=== PATIENT | male | born 1985 | race Caucasian/White ===

== ENCOUNTER 2019-08-04 18:16 | Emergency (ER) | payer BC ==
--- NOTE | 2019-08-04 19:36 | UC ---
Abdominal Pain Male HPI - HPI Summary HPI Summary: Patient is a 34-year-old gentleman who states he was treated for acute bronchitis with a Z-Wilfred and finished on Saturday. Patient states he's been feeling better until yesterday. Patient states midday he noted some discomfort in his abdomen quadrant. Patient states since this time pain has increased and seems to be more localized in the right lower quadrant. Patient denies any nausea vomiting. Patient ate lunch but did not eat dinner because he was "dizzy " patient denies any fevers or chills. No back pain. No hematuria. Patient had diarrhea Saturday but none since. Patient without any rashes. Patient with a headache congestion. Patient states his breathing is completely resolved since his treatment for bronchitis. Patient does have twin infants at home and one of the boys has influenza. Patient's primary is in family medicine and he has not seen this person in quite some time. He is on no prescribed medications. Patient took Motrin this morning for pain but nothing since. Patient is not immunocompromised. - History of Current Complaint Chief Complaint: UCAbdominalPain Stated Complaint: ABDOMINAL PAIN Hx Obtained From: Patient Severity Initially: Mild Severity Currently: Mild Pain Intensity: 2 Pain Scale Used: 0-10 Numeric - Allergies/Home Medications Allergies/Adverse Reactions: Allergies Allergy/AdvReac Type Severity Reaction Status Date / Time No Known Allergies Allergy Verified 08/04/19 18:30 Home Medications: Home Medications NK [No Home Medications Reported] 08/04/19 [History Confirmed 08/04/19] PMH/Surg Hx/FS Hx/Imm Hx Previously Healthy: Yes - Surgical History Surgical History: None - Family History Known Family History: Positive: Non-Contributory - Social History Occupation: Employed Full-time Lives: With Family Alcohol Use: Occasionally Substance Use Type: None Smoking Status (MU): Never Smoked Tobacco Review of Systems All Other Systems Reviewed And Are Negative: Yes Constitutional: Positive: Negative Skin: Positive: Negative Eyes: Positive: Negative ENT: Positive: Negative Respiratory: Positive: Negative Cardiovascular: Positive: Negative Gastrointestinal: Positive: Abdominal Pain Genitourinary: Positive: Negative Motor: Positive: Negative Neurovascular: Positive: Negative Musculoskeletal: Positive: Negative Neurological: Positive: Negative Psychological: Positive: Negative Is Patient Immunocompromised?: No Physical Exam - Summary Physical Exam Summary: Vital Signs Reviewed: Yes A+Ox3, no distress Eyes: Conjunctiva Clear, DAYNA. EOM intact and full ENT: Hearing grossly normal TM x 2 clear, mmoist, uvula midline, no exudate, no erythema Neck: Positive: Supple Respiratory: Positive: No respiratory distress, No accessory muscle use + CTA throughout no w/r Cardiovascular: RRR nl s1, s2 no m/r CBT <2 sec abd soft + BS nd, no guarding, no distended. + mild TTP right mid, lower abd Musculoskeletal Exam: MAHER x 4 without difficulty Strength Intact, ROM Intact, ambulatory without difficulty Neurological: Positive: Alert, + sensation throughout Psychological: Positive: Normal Response To examiner Skin: Positive: no rash, no ecchymosis Triage Information Reviewed: Yes Vital Signs: Initial Vital Signs Temp 98.8 F 08/04/19 18:27 Pulse 90 08/04/19 18:27 Resp 18 08/04/19 18:27 BP 139/94 08/04/19 18:27 Pulse Ox 99 08/04/19 18:27 Diagnostics - Radiology No standard instances Radiology Interpretation Completed By: Radiologist - Patient Name: ALEX TEE Medical Record#: [id number] Ordering Physician: Melania Lopez MD Acct.#: [id number] : 1985 Age: 34 Sex: M Location: [facility] Exam Date: 08/04/191949 ADM Status: REG ER Order Information: CT ABD/PEL W/ O Accession Number: [id number] CPT: 22748 PROCEDURE INFORMATION: Exam: CT Abdomen And Pelvis Without Contrast Exam date and time: 08/04/2019 7:59 PM Age: 34 years old Clinical indication: Abdominal pain; Additional info: Rlq pain, flank pain TECHNIQUE: Imaging protocol: Computed tomography of the abdomen and pelvis without contrast. Radiation optimization: All CT scans at this facility use at least one of these dose optimization techniques: automated exposure control ; mA and/or kV adjustment per patient size (includes targeted exams where dose is matched to clinical indication); or iterative reconstruction. COMPARISON: No relevant prior studies available. FINDINGS: Liver: Normal. No mass. Gallbladder and bile ducts: Normal. No calcified stones. No ductal dilation. Pancreas: Normal. No ductal dilation. Spleen: There is mild splenomegaly. Adrenals: Normal. No mass. Kidneys and ureters: Normal. No hydronephrosis. Stomach and bowel: Unremarkable. No obstruction. No mucosal thickening. Appendix: The appendix is mildly dilated measuring up to 9 mm diameter and isodense with no obvious periappendiceal inflammatory change. These findings are not specific for acute appendicitis but cannot exclude mild or early changes of acute appendicitis without signs of perforation. Intraperitoneal space: Unremarkable. No free air. No significant fluid collection. Vasculature : Unremarkable. No abdominal aortic aneurysm. Lymph nodes: Unremarkable. No enlarged lymph nodes. Bladder: Unremarkable as visualized. Reproductive: Unremarkable as visualized. Bones/joints: Unremarkable. No acute fracture. Soft tissues: Unremarkable. IMPRESSION: 1. The appendix is mildly dilated measuring up to 9 mm diameter and isodense with no obvious periappendiceal inflammatory change. These findings are not specific for acute appendicitis but cannot exclude mild or early changes of acute appendicitis without signs of perforation. 2. No visible renal, ureteral or bladder calculi. Dictated and Authenticated by: Aric Michael MD 08/04/2019 9:00 PM Eastern Time ([place] and [place]) To contact [facility] with a general question: [facility] - [phone] This report is only to be considered final once signed by the Provider(s) as displayed in the "<Electronically Signed by >" field (s). Absence of a signature indicates the report is in a draft status and still needs to be finalized. In the event this document was created by someone other than the signing Provider, the individual initiating the document will be listed in the "Entered by:" or "Dictated by:" ware. 1 of 2 Re-Evaluation - Re-Evaluation First Eval Comment: awaiting CT results. Pt without any needs Second Eval Comment: reviewed CT with pt . Pt continues with stable vital signs and non- toxic. Pt does have infant twins at home - one with influenza. Noted several patients in the [facility] in the ED. I called and hand a lengthy conversation with Dr. Bravo. Expressed my suspicion for early appendicitis and equivocal CT. After discussion - will discharge pt to home with very strict return precautions. Pt will go to ED in the morning 630-730am - have labs in ED. If provider suspicious for appy - will call surgeon sourcing consultant when results back. Pt states understand and complete agreement with plan. Verbalized back plan and return precautions. REpeat VS stable. I spoke with Liza primer charger in ED and she will pass to AM primer charger as well Abd Pain Male Course/Dx - Course Course Of Treatment: Patient presents to urgent care for evaluation of abdominal pain and progressive for the last 24 hours. Patient states yesterday, diffusely discomfort. Patient states today it's more towards the right lower quadrant. Patient denies any fevers. Patient hasn't okay appetite. No diaphoresis. No back pain. No dysuria or hematuria. Patient states he did have slight discomfort in his right testicle briefly earlier. No hematuria. On exam vital signs are stable. Patient very well-appearing not toxic. Patient does have right mid to lower abdominal pain. Patient urinalysis was done does not show signs of infection or hematuria. Discussed with patient treatment options. We' ll do CT noncontrast to look for renal colic versus appendicitis and discuss after. Patient aware and noncontrast study is suboptimal but oftentimes diagnostic for an inflamed appendicitis and inflammatory stranding with BMI > 30. Patient comfortable and agreement. Patient declined any analgesia at this time. - Differential Dx/Clinical Impression Provider Diagnosis: Acute abdominal pain Discharge ED - Sign-Out/Discharge Documenting (check all that apply): Patient Departure All imaging exams completed and their final reports reviewed: Yes - Discharge Plan Condition: Stable Disposition: HOME Patient Education Materials: Acute Abdominal Pain (ED) Referrals: Aric Bravo MD [Medical Doctor] - No Primary Care Phys,NOPCP [Primary Care Provider] - Additional Instructions: As discussed with your this evening, the doctor that evaluated you today is concerned your symptoms may represent an early appendicitis. [facility] with the plan that if your symptoms change in any way - increased pain, vomiting, fever, or ANY other concerns you go immediately to the emergency department. The provider who cared for you mitch spoke with the surgeon mitch. If your symptoms remain the same as current - you have been instructed to go to the emergency department in the morning (630-730am). If the ED provider caring for you is concerned for an appendicitis, it is recommended you have blood work drawn and the surgeon be called when these results are back. If you have any change to your symptoms or any other concern - please call 911 or go directly to the emergency department - Billing Disposition and Condition Condition: STABLE Disposition: Home
[2019-08-04 21:17] VITALS: BP 144/91
== END 2019-08-04 21:50 | disposition home or self-care (01) ==
LOC: UCEAST 18:16
DX: R10.9 Unspecified abdominal pain (principal); K38.9 Disease of appendix, unspecified
CPT/HCPCS: 74176; 81003; 99211; G0463

== ENCOUNTER 2019-08-05 03:30 | Day surgery (SDC) | payer BC ==
[2019-08-05] MEDS ORDERED: Ondansetron INJ* 2 MG/ML VIAL IV ONE (03:59)
[2019-08-05] MEDS ORDERED: NS 0.9% 1000 ML** 1,000 ML IV ONE (03:59)
[2019-08-05] MEDS ORDERED: fentaNYL* 50 MCG/ML 2 ML VIAL (100 MCG VIAL) IV SLOW PU ONE ×2 (04:00→04:01)
--- NOTE | 2019-08-05 04:19 | ED ---
Abdominal Pain/Male - HPI Summary HPI Summary: 34 year old male presents to the ED with a chief complaint of RLQ pain starting 2 days ago, gradually increasing in severity. Yesterday, urgent care CT revealed that appendix is enlarged. They recommended visiting [facility] for blood work and further workup. Patient denies fever but reports vomiting, chills, and diaphoresis. - History of Current Complaint Chief Complaint: EDAbdPain Stated Complaint: ABD PAIN PER PT Time Seen by Provider: 08/05/19 03:35 Hx Obtained From: Patient Onset/Duration: Gradual Onset, Lasting Days, Still Present Timing: Constant, Lasting Hours Severity Initially: Mild Severity Currently: Moderate Pain Intensity: 3 Pain Scale Used: 0-10 Numeric Location: Discrete At: RLQ Radiates: No Character: Sharp Associated Signs And Symptoms: Positive: Diaphoresis, Vomiting. Negative: Fever - Allergies/Home Medications Allergies/Adverse Reactions: Allergies Allergy/AdvReac Type Severity Reaction Status Date / Time No Known Allergies Allergy Verified 08/05/19 03:43 PMH/Surg Hx/FS Hx/Imm Hx Opthamlomology History: Denies: Hx Legally Blind Infectious Disease History: No Infectious Disease History: Denies: Traveled Outside the [place] in Last 30 Days - Family History Known Family History: Positive: Non-Contributory - Social History Alcohol Use: Weekly Substance Use Type: Reports: Marijuana Smoking Status (MU): Never Smoked Tobacco Review of Systems - ROS Summary Review of Systems Summary: Home Medications Medication Instructions Recorded Confirmed Type NK [No Home Medications Reported] 08/04/19 08/05/19 History Positive: Chills, Skin Diaphoresis. Negative: Fever Positive: Abdominal Pain, Vomiting All Other Systems Reviewed And Are Negative: Yes Physical Exam - Summary Physical Exam Summary: General: Well-developed, Well-nourished male. No acute distress. HEENT: Normocephalic, Atraumatic. Eyes: Conjuctiva normal, PERRL. Ears: TMs within normal limits. Nares: (-) discharge, (-) erythema. Oropharynx: Clear, mucous membranes moist, (-) exudates. Neck: Soft, FROM, (-) lymphadenopathy, (-) thyromegaly, (-) JVD. Cardiovascular: Normal sinus rhythm, (-) murmur. Lungs: Clear to auscultation bilaterally (-) wheezes, (-) rales, (-) rhonchi. Abdomen: Soft, non-distended, (-) organomegaly, normal bowel sounds. RLQ rebound and guarding, tenderness on palpation. Back: (-) CVA tenderness Extremities: No edema. Skin: Warm, dry, (-) rash. Neuro: Alert and oriented x3, no focal deficits. Psychiatric: Mood normal, affect flat. Triage Information Reviewed: Yes Vital Signs On Initial Exam: Initial Vitals Temp Pulse Resp BP Pulse Ox 97.8 F 113 18 153/114 97 08/05/19 03:35 08/05/19 03:35 08/05/19 03:35 08/05/19 03:35 08/05/19 03:35 Vital Signs Reviewed: Yes Procedures - Sedation Patient Received Moderate/Deep Sedation with Procedure: No Diagnostics - Vital Signs Vital Signs Temp Pulse Resp BP Pulse Ox 08/05/19 03:43 105 142/94 97 08/05/19 03:35 97.8 F 113 18 153/114 97 - Laboratory Result Diagrams: 08/05/19 04:30 08/05/19 04:30 Lab Statement: Any lab studies that have been ordered have been reviewed, and results considered in the medical decision making process. Abdominal Pain Male Course/Dx - Course Course Of Treatment: 34-year-old male presents from home with abdominal pain. Patient has had belly pain for about 2 days. It is localizing to the right lower quadrant. He was seen in urgent care earlier in the day. Had a CAT scan done which demonstrated possibly mildly inflamed appendix. Patient was advised to come to the emergency room at that time. However patient felt he needed to go home to be with his children overnight. He agreed to come back in the morning. During the night however he developed chills. Also developed vomiting. He then presented to the emergency room. On physical exam he has right lower quadrant tenderness, rebound, guarding. Patient referred to surgery for evaluation. After consult patient will be admitted to surgery. plan is to go to OR later today for acute appendicitis. - Diagnoses Provider Diagnoses: Acute appendicitis - Provider Notifications Discussed Care Of Patient With: Aric Bravo - Surgery Time Discussed With Above Provider: 05:12 Instructed by Provider To: Will See In ED Admit/Transition Orders Completed By ED Provider: Yes - Dr. Bravo accepts patient for surgery Discharge ED - Sign-Out/Discharge Documenting (check all that apply): Patient Departure - admit - Discharge Plan Condition: Stable Disposition: HOME - Billing Disposition and Condition Condition: STABLE Disposition: Home - Attestation Statements Document Initiated by Sukiibyvrose: Yes Documenting Scribe: Dave Dodge Provider For Whom Davon is Documenting (Include Credential): Randee Medeiros MD. Scribe Attestation: Dave Allison, scribed for Randee Medeiros MD. on 08/07/19 at 2019. Scribe Documentation Reviewed: Yes Provider Attestation: The documentation as recorded by the Dave florence accurately reflects the service I personally performed and the decisions made by , Randee Medeiros MD. Status of Scribe Document: Viewed
[2019-08-05 04:49] LABS: ABS Eosinophils 0.2 10^3/ul (0-0.6); ABS Lymphocytes 0.9 10^3/ul (1.0-4.8); ABS Monocytes 0.3 10^3/ul (0-0.8); ABS Neutrophils 4.5 10^3/ul (1.5-7.7); Eosinophil % 2.6 %; Hematocrit 42 % (42-52); Hemoglobin 13.9 g/dL (14.0-18.0); Lymphocyte % 15.5 %; Mean Corpuscular HGB Conc 33 g/dL (31-36); Mean Corpuscular Hemoglobin 28 pg (27-31); Mean Corpuscular Volume 83 fL (80-94); Mean Platelet Volume 7.6 fL (7.4-10.4); Nucleated Red Blood Cells % 0.1; Platelet Count 221 10^3/uL (150-450); Red Blood Count 4.99 10^6 /uL (4.18-5.48); Red Cell Distribution Width 13 % (10-15); White Blood Count 5.9 10^3/uL (3.5-10.8)
[2019-08-05 04:53] LABS: INR 1.09 (0.82-1.09)
[2019-08-05 05:04] LABS: ALT 24 U/L (7-52); AST 16 U/L (13-39); Albumin 4.3 g/dL (3.2-5.2); Albumin/Globulin Ratio 1.6 (1-3); Alkaline Phosphatase 56 U/L (34-104); Anion Gap 6 mmol/L (2-11); BUN/Creatinine Ratio 13.8 (8-20); Blood Urea Nitrogen 12 mg/dL (6-24); C Reactive Protein 17.87 mg/L (<8.01); CO2 Carbon Dioxide 28 mmol/L (22-32); Calcium 9.3 mg/dL (8.6-10.3); Chloride 104 mmol/L (101-111); EGFR African American 121.5 (>60); EGFR Non-African American 100.4 (>60); Globulin 2.7 g/dL (2-4); Glucose 115 mg/dL (70-100); Potassium 3.7 mmol/L (3.5-5.0); Sodium 138 mmol/L (135-145)
[2019-08-05 05:07] LABS: Urine Appearance Clear; Urine Bilirubin Negative (Negative); Urine Blood Negative (Negative); Urine Color Yellow; Urine Glucose Negative (Negative); Urine Ketones Trace (Negative); Urine Nitrite Negative (Negative); Urine Protein Negative (Negative); Urine Specific Gravity 1.021 (1.010-1.030); Urine Urobilinogen Negative (Negative)
[2019-08-05] MEDS ORDERED: Ondansetron INJ* 2 MG/ML VIAL IV PRN (08:52)
[2019-08-05] MEDS ORDERED: HYDROmorphone INJ* 0.5 MG/0.5 ML SYRINGE IV SLOW PU PRN (08:52)
[2019-08-05] MEDS ORDERED: Piperacillin/Tazobac ADVAN(*) 3.375 GM in NS 0.9% 100 ML* 100 ML IVPB ONE (08:55)
[2019-08-05] MEDS ORDERED: NS 0.9% 1000 ML** 1,000 ML IV SCH (09:00)
[2019-08-05] MEDS ORDERED: Lidocaine 2% PF * 5 ML VIAL ONE (12:15)
[2019-08-05] MEDS ORDERED: Succinylcholine* 20 MG/ML 10 ML VIAL ONE (12:15)
[2019-08-05] MEDS ORDERED: fentaNYL* 50 MCG/ML 2 ML VIAL (100 MCG VIAL) ONE (12:15)
[2019-08-05] MEDS ORDERED: Midazolam* 1 MG/ML 2 ML VIAL (2 MG) ONE (12:15)
[2019-08-05] MEDS ORDERED: Propofol* 10 MG/ML 20 ML BTL ONE (12:15)
[2019-08-05] MEDS ORDERED: Ondansetron INJ* 2 MG/ML VIAL ONE (12:16)
[2019-08-05] MEDS ORDERED: Metoclopramide IV* 5 MG/ML 2 ML VIAL ONE ×2 (12:16→13:22)
[2019-08-05] MEDS ORDERED: Bupivacaine 0.25% SDV* 30 ML ONE (12:34)
[2019-08-05] MEDS ORDERED: Rocuronium* 10 MG/ML VIAL ONE (13:12)
[2019-08-05] MEDS ORDERED: Ketorolac INJ* 30 MG/ML 1 ML VIAL ONE (13:22)
[2019-08-05] MEDS ORDERED: Dexamethasone IV* 4 MG/ML 1 ML (4 MG) ONE (13:22)
[2019-08-05] MEDS ORDERED: Naloxone* 0.4 MG/ML 1 ML VIAL IV PRN (14:06)
[2019-08-05] MEDS ORDERED: DiMENhydriNATE IV* 50 MG/ML VIAL IV PUSH PRN (14:06)
[2019-08-05] MEDS ORDERED: Sugammadex * 200 MG/2 ML VIAL IV PUSH ONE (14:27)
--- NOTE | 2019-08-05 14:39 | OP ---
Operative Report - Blank - Operative Report Date of Operation: 08/05/19 Note: Operative Note Preoperative Dx: Acute Appendicitis Postoperative Dx: Acute Appendicitis Procedure: Laparoscopic Appendectomy Anesthesia: GET Surgeon: Sarah YUAN Assist: Timbo BEYER, Radha MERCER EBL: < 25cc Specimen: appendix Fluids: 1000cc NS Drain: none Findings as above
[2019-08-05] MEDS: oxyCODONE TAB* 5 MG TAB PO PRN ×2 (15:09→15:10)
[2019-08-05] MEDS: fentaNYL* 50 MCG/ML 2 ML VIAL (100 MCG VIAL) IV PRN ×5 (15:13→17:14)
[2019-08-05] MEDS ORDERED: Acetaminophen IV 1GM/100ML * 1,000 MG/100 ML VIAL IVPB ONE (16:13)
[2019-08-05 16:41] VITALS: BP 118/79
--- NOTE | 2019-08-05 19:08 | OP ---
Operative Report - Blank - Operative Report Date of Operation: 08/05/19 Note: PRE-OPERATIVE DX: Acute appendicitis POST-OPERATIVE DX: Same PROCEDURE: Laparoscopic appendectomy SURGEON: Justine Smith MD FORM SETTER/DRIVER: Everette REINOSO ANESTHESIA: GETA EBL: 20ml FINDINGS: Inflammed appendix, no evidence of rupture. INDICATION: Arsalan Conley is a 34 year-old man previously healthy who was seen in urgent care for 2 days of RLQ abdominal pain. He recently was taking azithromycin for an upper respiratory infection. CT abd/pelvis without contrast which showed a mildly dilated appendix 9 mm in diameter. Given his physical exam, he was diagnosed with early acute appendicitis. Laparoscopic appendectomy, possible open was discussed with the patient. Risks were described including but not limited to bleeding, infection, or bowel injury. He agreed to proceed with surgery. DESCRIPTION: The patient was brought to the OR and placed in the supine position on the OR table. SCDs were placed. The patient was warmed. He had received Zosyn about 2 hours prior to surgery. General anesthesia was administered. The abdomen was prepped and draped in the usual sterile fashion. A time out confirming the patient's name, date of , and procedure was called. An infraumbilical curvilinear incision was made with a scalpel. The incision was carried down to the fascia using blunt dissection. The fascia was incised transversely with a scalpel. The preperitoneal layer was bluntly dissected away , and the peritoneum was opened with blunt dissection. A 12 mm Herlinda trocar was placed into the abdomen. Pneumoperitoneum was achieved up to 15 mmHg. The camera was placed into the abdomen. The bowel below the umbilical incision was examined, and there was no evidence of trauma. A 5 mm trocar was placed in the left lower quadrant, and another 5 mm trocar was placed in the suprapubic region at the midline. Both trocars were placed under direct visualization. The cecum was identified, and the appendix was found just lateral to the cecum. The mesoappendix was edematous and the appendix was dilated. There was no evidence of performation. The appendix was elevated. The LigaSure was used to divide the mesoappendix. A window was created at the base of the appendix using blunt dissection. The surrounding mesentery around the base of the appendix was taken down with the LigaSure. A 45 mm [place] stapler was fired across the base of the appendix. The appendix was placed in a specimen bag and removed from the abdomen. The staple line was examined and was intact. There was good hemostasis at the surgical site. The trocars were removed under direct visualization. The fascia at the umbilical incision was closed with interrupted 0 Vicryl sutures. The skin was closed with running 4-0 monocryl. Marcaine 0.25% was injected into all the incisions. The remaining incisions were closed with interrupted 4-0 monocryl. SteriStrips were placed over the incisions. Needle and sponge counts were correct. The patient was extubated and brought to recovery in stable condition.
--- NOTE | 2019-08-10 20:52 | HP ---
H&P (Free Text) History and Physical: CC: Right lower quadrant abdominal pain HPI: Arsalan Conley is a 34-year-old otherwise healthy man who presented to the ED with 2 days of abdominal pain. He initially was seen at urgent care where a noncontrast CT scan was performed and showed a dilated appendix. He has been taking azithromycin for an upper respiratory infection. He reports right lower quadrant abdominal pain and nausea. He denies fevers. PMH: None PSH: None HOME MEDICATIONS: None ALLERGIES: None FH: Parents alive and well. SH: Lives with and twin boys. Denies tobacco, alcohol, or recreational drug use. ROS: 10-point review of systems was obtained. Pertinent positives and negatives are in the HPI. PHYSICAL EXAM: General: No acute distress. Head: Normocephalic and atraumatic. Eyes: Pupils are equal. No scleral icterus. Mouth: Moist mucous membranes. Neck: Trachea midline. CV: Regular rate and rhythm. Chest: Clear to auscultation bilaterally. Abdomen: Soft, nondistended. Tenderness to the right lower quadrant. Skin: Warm and dry. Extremities: Warm. No pedal edema. Neuro: Alert and oriented 3. Laboratory Last Values WBC 5.9 10^3/uL (3.5-10.8) 08/05/19 04:30 RBC 4.99 10^6 /uL (4.18-5.48) 08/05/19 04:30 Hgb 13.9 g/dL (14.0-18.0) L 08/05/19 04:30 Hct 42 % (42-52) 08/05/19 04:30 MCV 83 fL (80-94) 08/05/19 04:30 MCH 28 pg (27-31) 08/05/19 04:30 MCHC 33 g/dL (31-36) 08/05/19 04:30 RDW 13 % (10-15) 08/05/19 04:30 Plt Count 221 10^3/uL (150-450) 08/05/19 04:30 MPV 7.6 fL (7.4-10.4) 08/05/19 04:30 Neut % (Auto) 75.8 % 08/05/19 04:30 Lymph % (Auto) 15.5 % 08/05/19 04:30 [place] % (Auto) 5.5 % 08/05/19 04:30 Eos % (Auto) 2.6 % 08/05/19 04:30 Baso % (Auto) 0.6 % 08/05/19 04:30 Absolute Neuts (auto) 4.5 10^3/ul (1.5-7.7) 08/05/19 04:30 Absolute Lymphs (auto) 0.9 10^3/ul (1.0-4.8) L 08/05/19 04:30 Absolute Monos (auto) 0.3 10^3/ul (0-0.8) 08/05/19 04:30 Absolute Eos (auto) 0.2 10^3/ul (0-0.6) 08/05/19 04:30 Absolute Basos (auto) 0.0 10^3/ul (0-0.2) 08/05/19 04:30 Absolute Nucleated RBC 0.0 10^3/ul 08/05/19 04:30 Nucleated RBC % 0.1 08/05/19 04:30 INR (Anticoag Therapy) 1.09 (0.82-1.09) 08/05/19 04:30 Sodium 138 mmol/L (135-145) 08/05/19 04:30 Potassium 3.7 mmol/L (3.5-5.0) 08/05/19 04:30 Chloride 104 mmol/L (101-111) 08/05/19 04:30 Carbon Dioxide 28 mmol/L (22-32) 08/05/19 04:30 Anion Gap 6 mmol/L (2-11) 08/05/19 04:30 BUN 12 mg/dL (6-24) 08/05/19 04:30 Creatinine 0.87 mg/dL (0.67-1.17) 08/05/19 04:30 Est GFR ( Amer) 121.5 (>60) 08/05/19 04:30 Est GFR (Non-Af Amer) 100.4 (>60) 08/05/19 04:30 BUN/Creatinine Ratio 13.8 (8-20) 08/05/19 04:30 Glucose 115 mg/dL (70-100) H 08/05/19 04:30 Lactic Acid 0.6 mmol/L (0.5-2.0) 08/05/19 04:30 Calcium 9.3 mg/dL (8.6-10.3) 08/05/19 04:30 Total Bilirubin 0.40 mg/dL (0.2-1.0) 08/05/19 04:30 AST 16 U/L (13-39) 08/05/19 04:30 ALT 24 U/L (7-52) 08/05/19 04:30 Alkaline Phosphatase 56 U/L (34-104) 08/05/19 04:30 C-Reactive Protein 17.87 mg/L (<8.01) H 08/05/19 04:30 Total Protein 7.0 g/dL (6.4-8.9) 08/05/19 04:30 Albumin 4.3 g/dL (3.2-5.2) 08/05/19 04:30 Globulin 2.7 g/dL (2-4) 08/05/19 04:30 Albumin/Globulin Ratio 1.6 (1-3) 08/05/19 04:30 Lipase < 10 U/L (11.0-82.0) L 08/05/19 04:30 Urine Color Yellow 08/05/19 04:50 Urine Appearance Clear 08/05/19 04:50 Urine pH 6.0 (5-9) 08/05/19 04:50 Ur Specific [place] 1.021 (1.010-1.030) 08/05/19 04:50 Urine Protein Negative (Negative) 08/05/19 04:50 Urine Ketones Trace (Negative) A 08/05/19 04:50 Urine Blood Negative (Negative) 08/05/19 04:50 Urine Nitrate Negative (Negative) 08/05/19 04:50 Urine Bilirubin Negative (Negative) 08/05/19 04:50 Urine Urobilinogen Negative (Negative) 08/05/19 04:50 Ur Leukocyte Esterase Negative (Negative) 08/05/19 04:50 Urine Glucose Negative (Negative) 08/05/19 04:50 Urine Ascorbic Acid * (Negative) A 08/05/19 04:50 A&P 34M with acute appendicitis. His symptoms may be less severe due to the recent azithromycin. I discussed laparoscopic appendectomy possible open. ice spoke with the patient and his about risks including but not limited to of bleeding, infection, bowel injury. -OR today for laparoscopic appendectomy possible open. -Continue Zosyn. -Nothing by mouth, IVF.
== END 2019-08-05 17:30 | disposition home or self-care (01) ==
LOC: ED 03:30 → OR 12:19
PROVIDERS: ATTEND Surgery
DX: K35.80 Unspecified acute appendicitis (principal); R10.31 Right lower quadrant pain; R11.10 Vomiting, unspecified
CPT/HCPCS: 36415; 80053; 81003; 83605; 83690; 85025; 85610; 86140; 88304; 96374; 99285; A9270-GY; C1776; J0330; J1100; J1170; J1885; J2250; J2405; J2543; J2704; J2765; J3010; J3490